=== PATIENT | female | born 1995 | race Two or more races ===

== ENCOUNTER 2018-11-24 15:16 | Emergency (ER) | payer OTHER ==
[~2018-11-24] VITALS: Ht 149.9 cm; Wt 46.3 kg
== END 2018-11-24 21:56 | disposition home or self-care (01) ==
LOC: ER 15:16
DX: M77.52 Other enthesopathy of left foot and ankle (principal)

== ENCOUNTER 2021-02-17 00:09 | Emergency (ER) | payer OTHER ==
[~2021-02-17] VITALS: Ht 149.9 cm; Wt 45.4 kg
[2021-02-17] MEDS ORDERED: PROMETHEGAN25 MG RECTAL (08:16)
[2021-02-17] MEDS ORDERED: ONDANSETRON ODT4 MG PO (08:16)
[2021-02-24] MEDS ORDERED: ZOFRAN4 MG (18:19)
== END 2021-02-17 08:20 ==
LOC: ER 00:09
DX: R11.10 Vomiting, unspecified (principal)

== ENCOUNTER → 2021-02-24 | Emergency (ER) | payer OTHER ==
[~2021-02-24] VITALS: Ht 149.9 cm; Wt 45.4 kg
[~2021-02-24] MED LIST: ONDANSETRON ODT4 MG PO; PROMETHEGAN25 MG RECTAL; ZOFRAN4 MG
== END | disposition home or self-care (01) ==
LOC: ER 18:00
DX: O20.9 Hemorrhage in early pregnancy, unspecified (principal); Z3A.01 Less than 8 weeks gestation of pregnancy

== ENCOUNTER 2021-06-23 08:07 | Outpatient (CLI) | payer OTHER | END 2021-06-23 09:25 | disposition home or self-care (01) | LOC: PRENATAL 08:07 | PROVIDERS: ATTEND Obstetrics & Gynecology Maternal & Fetal Medicine | DX: O35.0XX1 Maternal care for (suspected) central nervous system malformation in fetus, fetus 1 (principal); O35.3XX1 Maternal care for (suspected) damage to fetus from viral disease in mother, fetus 1; O98.512 Other viral diseases complicating pregnancy, second trimester; O26.872 Cervical shortening, second trimester; Z36.89 Encounter for other specified antenatal screening; Z3A.24 24 weeks gestation of pregnancy ==

== ENCOUNTER 2022-10-25 09:35 | Outpatient (CLI) | payer OTHER | END 2022-10-25 16:24 | disposition home or self-care (01) | LOC: PRENATAL 09:35 | PROVIDERS: ATTEND Obstetrics & Gynecology Maternal & Fetal Medicine | DX: O36.80X0 Pregnancy with inconclusive fetal viability, not applicable or unspecified (principal); Z3A.13 13 weeks gestation of pregnancy ==

== ENCOUNTER 2022-12-07 09:47 | Outpatient (CLI) | payer OTHER | END 2022-12-07 11:02 | disposition home or self-care (01) | LOC: PRENATAL 09:47 | PROVIDERS: ATTEND Obstetrics & Gynecology Maternal & Fetal Medicine | DX: O35.9XX0 Maternal care for (suspected) fetal abnormality and damage, unspecified, not applicable or unspecified (principal); O35.3XX0 Maternal care for (suspected) damage to fetus from viral disease in mother, not applicable or unspecified; Z3A.20 20 weeks gestation of pregnancy ==

== ENCOUNTER 2023-02-22 18:22 | Outpatient (CLI) | payer OTHER | END 2023-02-22 18:34 | disposition home or self-care (01) | LOC: NST 18:22 | PROVIDERS: ATTEND Student in an Organized Health Care Education/Training Program | DX: Z34.83 Encounter for supervision of other normal pregnancy, third trimester (principal) ==

== ENCOUNTER 2023-02-27 09:19 | Outpatient (CLI) | payer OTHER | END 2023-02-27 11:00 | disposition home or self-care (01) | LOC: PRENATAL 09:19 | PROVIDERS: ATTEND Obstetrics & Gynecology Maternal & Fetal Medicine | DX: O26.849 Uterine size-date discrepancy, unspecified trimester (principal); O36.8199 Decreased fetal movements, unspecified trimester, other fetus; Z3A.31 31 weeks gestation of pregnancy ==

== ENCOUNTER 2024-06-14 18:20 | Emergency (ER) | payer OTHER ==
[~2024-06-14] VITALS: Ht 149.9 cm; Wt 47.6 kg
[2024-06-14] MEDS ORDERED: KETOROLAC TROMETHAMINE 60 MG VIAL IM ONE (20:15)
[2024-06-14] MEDS ORDERED: CEFTRIAXONE SODIUM 1,000 MG VIAL IM ONE (20:15)
== END 2024-06-14 20:49 | disposition home or self-care (01) ==
LOC: ER 18:22
DX: S61.219A Laceration without foreign body of unspecified finger without damage to nail, initial encounter (principal); W26.0XXA Contact with knife, initial encounter; Y93.89 Activity, other specified; Y92.89 Other specified places as the place of occurrence of the external cause; Y99.8 Other external cause status

== ENCOUNTER 2024-12-22 10:31 | Emergency (ER) | payer OTHER ==
[~2024-12-22] VITALS: Ht 149.9 cm; Wt 47.6 kg
[2024-12-22 12:55] LABS: BASO % 0.3 % (0.1-1.2); EOS # 0.09 (0.04-0.54); EOS % 1.5 % (0.7-7.0); HEMATOCRIT 42.4 % (34.1-44.9); HEMOGLOBIN 14.2 g/dL (11.2-15.7); LYMPH # 1.98 (1.18-3.74); LYMPH % 32.6 % (19.3-53.1); MEAN CORPUSCULAR HEMOGLOBIN 31.1 pg (25.6-32.2); MONO # 0.29 (0.24-0.82); MONO % 4.8 % (4.7-12.5); NEUT # 3.68 (1.56-6.13); NEUT % 60.6 % (34.0-71.1); PLATELET COUNT 305 K/uL (163-369); RED BLOOD COUNT 4.56 M/uL (3.93-5.22); RED CELL DISTRIBUTION WIDTH 11.9 % (11.6-14.4)
[2024-12-22 13:13] LABS: URINE APPEARANCE Clear; URINE BILIRRUBIN Negative (NEGATIVE); URINE BLOOD Negative; URINE COLOR Yellow; URINE GLUCOSE Negative (NEGATIVE); URINE KETONE 15 (NEGATIVE); URINE LEUKOCYTE Negative; URINE NITRATE Negative; URINE PROTEIN Negative (NEGATIVE); URINE UROBILINOGEN 0.2 E.U./dl
[2024-12-22 13:17] LABS: URINE BACTERIA 173.7 uL (0.0-1933); URINE EPITHELIAL CELLS 41.9 uL (0.0-38.8); URINE RBC 5.1 uL (0.0-20.8)
[2024-12-22 13:37] LABS: URINE WBC 0.9 uL (0.0-23.2)
[2024-12-22 14:10] LABS: CALCIUM 9.8 mg/dL (8.5-10.1); CREATININE SERUM 0.51 mg/dL (0.55-1.02); GFR 144.65; POTASSIUM 4.49 mEq/L (3.5-5.1)
== END 2024-12-22 18:51 | disposition home or self-care (01) ==
LOC: ER 10:31
PROVIDERS: Emergency Medicine
DX: O26.891 Other specified pregnancy related conditions, first trimester (principal); O36.80X0 Pregnancy with inconclusive fetal viability, not applicable or unspecified; O26.859 Spotting complicating pregnancy, unspecified trimester; O26.899 Other specified pregnancy related conditions, unspecified trimester; Z3A.01 Less than 8 weeks gestation of pregnancy

== ENCOUNTER 2025-01-14 01:36 | Emergency (ER) | payer OTHER ==
[~2025-01-14] VITALS: Ht 121.9 cm; Wt 48.1 kg
[~2025-01-14 01:36] MED LIST changes: +INTEGRA PLUS C1 EACH PO; +IRON325 MG PO; +PRENATAL CAPLE1 EAC1 PO; +PRENATAL TABLE1 EAC1 PO
[2025-01-14] MEDS ORDERED: TETANUS & DIPHTHERIA TOX,ADULT 0.5 ML VIAL IM STA (02:57)
[2025-01-14 04:30] LABS: BASO % 0.3 % (0.1-1.2); EOS # 0.04 (0.04-0.54); EOS % 0.5 % (0.7-7.0); LYMPH # 1.89 (1.18-3.74); LYMPH % 23.8 % (19.3-53.1); MEAN PLATELET VOLUME 9.60 fl (9.4-12.4); MONO # 0.37 (0.24-0.82); MONO % 4.7 % (4.7-12.5); NEUT # 5.60 (1.56-6.13); NEUT % 70.6 % (34.0-71.1); RED CELL DISTRIBUTION WIDTH 11.9 % (11.6-14.4)
[2025-01-14 04:49] LABS: INR 0.94
[2025-01-14 04:54] LABS: ALT/SGPT 25 U/L (12-78); AST/SGOT 22 U/L (15-37); BILIRUBIN TOTAL 0.21 mg/dL (0.3-1.2); BILIRUBIN,CONJUGATED < 0.10 mg/dL (0.0-0.2); BUN CREA RATIO 14 (7.0-25.0); CREATININE SERUM 0.50 mg/dL (0.55-1.02); GFR 148.00; GLOBULINA 3.8 G/DL (2.4-3.5); GLUCOSE FASTING 107 mg/dL (65-100); OSMOLALITY SERUM 280 MOSM/KG (275-295)
[2025-01-14 05:12] LABS: URINE APPEARANCE Clear; URINE BILIRRUBIN Negative (NEGATIVE); URINE BLOOD Negative; URINE COLOR Yellow; URINE GLUCOSE Negative (NEGATIVE); URINE KETONE 15 (NEGATIVE); URINE LEUKOCYTE Negative; URINE NITRATE Negative; URINE PROTEIN Negative (NEGATIVE); URINE UROBILINOGEN 0.2 E.U./dl
[2025-01-14 05:13] LABS: URINE BACTERIA 513.5 uL (0.0-1933); URINE EPITHELIAL CELLS 34.4 uL (0.0-38.8); URINE WBC 14.6 uL (0.0-23.2)
[2025-01-14 05:22] LABS: URINE CAST 0.29 uL (0.0-1.40); URINE RBC 1.1 uL (0.0-20.8)
[2025-01-14] MEDS ORDERED: KETOROLAC TROMETHAMINE 10 MG TABLET PO STA (06:59)
[2025-01-14 09:21] LABS: COVID-19 AG NEGATIVE (NEGATIVE)
[2025-01-14 10:49] LABS: COCAINE NEGATIVE (NEGATIVE); METHADONE NEGATIVE (NEGATIVE); OPIATES NEGATIVE (NEGATIVE); THC ( Cannabinoids) POSITIVE (NEGATIVE)
== END 2025-01-14 12:55 | disposition designated cancer center or children's hospital (05) ==
LOC: ER 01:41
PROVIDERS: Emergency Medicine; General Practice
DX: S51.812A Laceration without foreign body of left forearm, initial encounter (principal); X78.1XXA Intentional self-harm by knife, initial encounter; Y93.89 Activity, other specified; Y92.89 Other specified places as the place of occurrence of the external cause; Y99.8 Other external cause status; T14.91XA Suicide attempt, initial encounter; Z20.822 Contact with and (suspected) exposure to COVID-19
CPT/HCPCS: 12002; 36415; 71045; 90471; 90714; 93005; J1670

== ENCOUNTER → 2025-01-26 | Emergency (ER) | payer OTHER ==
[~2025-01-26] VITALS: Ht 149.9 cm; Wt 47.6 kg
[~2025-01-26] MED LIST changes: +CEFTRIAXONE SODIUM 1,000 MG VIAL IM ONE; +DUI500 PO; +ZOLOFT25 MG PO
[2025-01-26 15:09] VITALS: BP 104/68; O2SAT 98
== END | disposition home or self-care (01) ==
LOC: ER 13:27
DX: L08.9 Local infection of the skin and subcutaneous tissue, unspecified (principal); T14.8XXA Other injury of unspecified body region, initial encounter; Z48.02 Encounter for removal of sutures